=== PATIENT | male | born 1990 | race Hispanic/Latino ===

== ENCOUNTER 2021-10-29 13:35 | Emergency (ER) | payer OTHER ==
[~2021-10-29] VITALS: Ht 175.3 cm; Wt 131.5 kg
[2021-10-29] MEDS ORDERED: ZYRTEC10 M3 PEG (14:54)
== END 2021-10-29 14:39 | disposition home or self-care (01) ==
LOC: ER 13:55
DX: R06.02 Shortness of breath (principal)
CPT/HCPCS: 71045; 93005; 99283